=== PATIENT | female | born 1990 | race Caucasian/White ===

== ENCOUNTER 2018-09-25 21:35 | Inpatient (IN) | payer BC ==
[2018-09-26] MEDS ORDERED: Nalbuphine 10 MG/1 ML Vial IM STA (02:53)
[2018-09-26] MEDS ORDERED: Nalbuphine 10 MG/1 ML Vial ONE (03:21)
[2018-09-26] MEDS: Lactated Ringers 1,000 ML IV SCH ×3 (03:28→10:21)
[2018-09-26] MEDS ORDERED: Lactated Ringers 1,000 ML IV ONE (04:21)
[2018-09-26] MEDS ORDERED: Ondansetron 4 MG/2 ML SDV IV PRN (04:21)
[2018-09-26] MEDS ORDERED: Bupivacaine 0.5% 30 ML SDV ONE ×2 (08:00→11:17)
[2018-09-26] MEDS ORDERED: Sodium Chloride 0.9% 10 ML Syringe FLUSH PRN (08:09)
[2018-09-26] MEDS ORDERED: Carboprost Tromethamine 250 MCG/1 ML Amp IM PRN (08:09)
[2018-09-26] MEDS ORDERED: Tranexamic Acid 1,000 MG in Sodium Chloride 0.9% 100 ML IV PRN (08:09)
[2018-09-26] MEDS ORDERED: Misoprostol 400 MCG (4 X 100 MCG TAB) RECTAL PRN (08:09)
[2018-09-26] MEDS ORDERED: Lactated Ringers 500 ML IV ONE (08:09)
[2018-09-26] MEDS ORDERED: Methylergonovine 0.2 MG/1 ML Amp IM PRN (08:09)
[2018-09-26] MEDS ORDERED: Metoclopramide 10 MG/2 ML SDV IVPUSH PRN (08:09)
[2018-09-26] MEDS ORDERED: Acetaminophen 325 MG Tab PO PRN (08:09)
[2018-09-26] MEDS ORDERED: fentaNYL 100 MCG/2 ML SDV IVPUSH PRN (08:09)
[2018-09-26] MEDS ORDERED: Lidocaine 1% 30 ML SDV INJECT PRN (08:09)
[2018-09-26] MEDS ORDERED: Oxytocin/Normal Saline 30 UNIT/500 ML BAG IV SCH (08:15)
[2018-09-26] MEDS ORDERED: fentaNYL 100 MCG/2 ML SDV ONE (09:46)
[2018-09-26] MEDS ORDERED: EPINEPHrine 1 MG/ML SDV ONE (09:46)
[2018-09-26] MEDS ORDERED: ePHEDrine 50 MG/ML SDV ONE (10:19)
[2018-09-26] MEDS ORDERED: Citric Acid/Sodium Citrate Solution 30 ML Cup PO ONE (10:53)
[2018-09-26] MEDS ORDERED: ceFAZolin 2 GM in Premix Bag 1 BAG IV ONE (11:00)
[2018-09-26] MEDS ORDERED: Oxytocin/Normal Saline 60 UNIT/1,000 ML BAG ONE (11:05)
[2018-09-26] MEDS ORDERED: Propofol 200 MG/20 ML SDV ONE (11:06)
--- NOTE | 2018-09-26 11:22 | PCM.PRNOTE ---
- Free Text/Narrative Note: Requested to provide analgesia to full term patient in severe pain, mom is not tolerating contractions at all. Upon entering the room, patient is lying in bed complaining of severe abdominal/pelvic pain and discomfort with eyes closed. Unable to talk to me. Procedure was discussed with patient including adverse outcomes and expectations. Pt consented to analgesia, SAB/IT. Pt placed into a proper sitting position. Landmarks for SAB/IT were identified and marked. Hands were washed and appropriate PPE was applied. Back was prepped with betadine x3. A sterile, transparent, fenestrated drape was applied. Excess betadine was removed. Using 3 mL of a 1% lidocaine solution, a skin wheel was placed at the L2/L3 interspace. A 24 ga (4 inch) Pencan spinal needle was inserted until positive for CSF. Negative for heme or paresthesias. Injected fentanyl 30 mcg, sufentanil 25 mcg, and 9 mg of a 0.75% bupivacaine solution with an epi wash. Pt was placed left lateral position for approximately 10 min. Baby started having decelerations with HR as low as 60s for a few seconds. HR was in 90s for a few minutes. Dr Yepez was notified. Pt was moved to right lateral postion. BP normal but decels still present. Switched to left lateral with BP cuff on right arm, above heart and BP was 73/ 45. Retook BP and was still 80/40s. Pt is having no N/V or other s/s of hypotension. Baby HR likes left side will FHR in 150s but mom BP is still low. Pt was given 10 mg of ephedrine IV and BP back to 110/50 while still on left side. Mother did have a decel right before the intrathecal but nurse did say she had a few throughout the night. Dr Yepez wants to do an urgent c- section. Will continue to monitor. Procedure Date & Time: 09/26/18 [id number]
[2018-09-26] MEDS ORDERED: Bupivacaine 0.5% 30 ML SDV INJECT ONE (12:49)
[2018-09-26] MEDS ORDERED: diphenhydrAMINE 50 MG/ML SDV IVPUSH PRN (14:16)
[2018-09-26] MEDS ORDERED: Naloxone 2 MG/2 ML Syringe IVPUSH PRN (14:16)
[2018-09-26] MEDS ORDERED: ePHEDrine 50 MG/ML SDV IVPUSH PRN (14:16)
[2018-09-26] MEDS ORDERED: Acetaminophen/oxyCODONE 325-5 MG Tab PO PRN (14:16)
--- NOTE | 2018-09-26 15:49 | OR ---
DATE: 09/26/2018 LOCATION: [facility]. PREOPERATIVE DISCUSSION: Preoperatively, we did thoroughly explain to the patient the reasons and the goals for strongly recommending a primary section. The patient does have non-reassuring heart tones with recurrent variable decelerations at times and some of these decelerations were down into the 70s with slow return to baseline and now a lack of variability. Other times and most of the time, the heart tones have been category I, however. We did strongly recommend delivery by section for these reasons. Alternatives such as waiting longer with a further trial of labor, which I do not recommend, was discussed with her and offered to her. The patient and her and I have all agreed to proceed with primary section, however. We did thoroughly discuss the risk and slight chance for complications or adverse outcomes or adverse side effects from a section and we did discuss these possibilities with her. All of her questions have been answered. They both do consent for the as mentioned above. PREOPERATIVE DIAGNOSES: 1. at 40 weeks' gestation with non-reassuring heart tones with recurrent variable decelerations and lack of variability. Previously, her heart tones have been category I. 2. The patient is rhesus-factor negative. 3. Gestational hypertension. OPERATION PERFORMED: Primary section, low transverse. POSTOPERATIVE DIAGNOSES: 1. at 40 weeks' gestation with non-reassuring heart tones with recurrent variable decelerations and lack of variability. Previously, her heart tones have been category I. 2. The patient is rhesus-factor negative. 3. Gestational hypertension. 4. Evidence of pelvic adhesions, suggesting a previous pelvic inflammatory process. KEYPUNCHER SURGEON: Beena Nieves MD ESTIMATED BLOOD LOSS: 700 mL. COMPLICATIONS: None. DESCRIPTION OF PROCEDURE: After the induction of satisfactory regional anesthesia and with the patient's abdomen routinely prepped and draped in the usual fashion, a Pfannenstiel incision was now made in the skin. This was carried down to the deeper layers with a clean knife and the peritoneum was now entered in the usual fashion. I did notice that interestingly, the lower uterine segment was not very well thinned out as we usually see, also there were multiple areas of fine filmy adhesions across pretty much all of the anterior uterus, suggesting a possible previous inflammatory process. Also, her ovaries had fine filmy adhesions suggesting previous inflammation of some sort. Now, the lower uterine incision was made and this was extended bilaterally with the bandage scissors. There were quite a few large venous sinusoids in this thick lower uterine segment. The baby was now delivered from the vertex presentation and this was a viable male who had scores of 8 and 9 and the weight was later reported as 7 pounds 11 ounces. A sample of cord blood was obtained. The placenta was manually delivered from the uterine cavity and the uterine cavity was now carefully wiped clean with a moist laparotomy sponge. The first layer of the uterus was closed with 0 Vicryl continuous interlocking sutures. A second Lembert imbricating layer was now placed on top of this. There was some extra bleeding in the left angle area of the uterine incision and 2 more interrupted sutures of 0 Vicryl were placed in this area. Several small bleeders on the anterior surface of the uterus were still oozing and these were very carefully electrocoagulated. Please see my description above regarding the fine filmy adhesions on her ovaries bilaterally as well as across all of the anterior serosal surface of the uterus, which seemed to have numerous neovascularization and potential for bleeding, and suggest a previous inflammatory process. When the uterine incision was noted to be hemostatic, the pelvis was very carefully but thoroughly irrigated with warm normal saline. The pelvis was now re-inspected again and a couple more areas were electrocoagulated and then I did place Surgicel in 3 areas on the serosal surface of the uterus to achieve further hemostasis. The Pearson catheter was draining clear urine at all times. The pelvic anterior peritoneum was now re-approximated with 3-0 plain gut sutures. The rectus fascia was now closed with 0 Vicryl continuous suturing using a separate strand for the right and left sides of the incision respectively. This gave an appropriate and adequate closure. Now, the subcutaneous tissues were irrigated again and then closed with 3-0 plain gut interrupted. The subcutaneous tissues were injected with 10 mL of 0.5% Marcaine for extra analgesic support. Marcus were now applied to the skin. The needle, sponge, and instrument counts were reported as correct. Estimated blood loss was approximately 700 mL. As mentioned above, Pearson catheter was draining clear urine at all times. The patient tolerated the procedure well and went to the recovery room in good condition. [facility] /[id number]
[2018-09-26] MEDS: Docusate Sodium 100 MG Cap PO PRN (17:42)
[2018-09-26] MEDS: Ketorolac 30 MG/ML SDV IVPUSH SCH ×2 (17:42→23:37)
[2018-09-26] MEDS: Simethicone 80 MG Tab.Chew PO SCH ×2 (17:42→22:00)
[2018-09-27] MEDS: Ketorolac 30 MG/ML SDV IVPUSH SCH (06:11)
[2018-09-27] MEDS: Docusate Sodium 100 MG Cap PO PRN ×2 (08:03→21:33)
[2018-09-27] MEDS: Simethicone 80 MG Tab.Chew PO SCH ×4 (08:03→21:33)
[2018-09-27] MEDS: Prenatal Multivitamin with Calcium/Folic Acid/Iron Tab PO SCH (08:03)
--- NOTE | 2018-09-27 08:51 | HP ---
HISTORY OF PRESENT ILLNESS: This patient is a 28-year-old, 1, para 0, patient who is followed by Dr. Peterson. I have also seen her previously before her by good dates and by early ultrasound. She does have an FERNANDO of 09/26, and is at 40 weeks' gestation today. She was in [place] yesterday, and at approximately, 6:00 p.m. yesterday, 09/25/2018, she did have spontaneous rupture of membranes. She did continue to leak from the bag of martínez, however, did not have any onset of labor contractions. She did come to this facility at approximately 10 last night. Her course has otherwise been quite uncomplicated. Because of some edema of her lower extremities, which was a bit more prominent on the right lower extremity, a Doppler ultrasound was done on her previously, which did not reveal any evidence of DVT. She also has had some slightly elevated blood pressures at times and Dr. Peterson has been doing serial PIH lab testing on her and all of that testing recently has not revealed any evidence for preeclampsia. We also have repeated her PIH labs late last night and those continued to be within normal limits. The patient is Rh- negative, unsensitized. She has been experiencing good movement recently. She denies any other obstetric complications prenatally that she is aware of. Please see the EHR for her complete battery of labs. As mentioned above, she is definitely GBS negative. She is immune to rubella. PAST MEDICAL HISTORY: She denies any knowledge of heart, lung, liver or kidney disease. ALLERGIES: Codeine and milk. PAST SURGICAL HISTORY: Previous surgery consists of wisdom tooth extraction. MEDICATIONS: At present, vitamins. FAMILY HISTORY: Noncontributory. 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 She is here with her while in labor. She is a nonsmoker. Denies heavy usage of alcohol and no alcohol during the of course. PHYSICAL EXAMINATION: Vital Signs: Admission blood pressures were 137/86, pulse 73, respirations 18, temperature 98.2. HEENT: The sclerae are nonicteric. Lungs: Clear to A. Heart: Regular rhythm without murmur. Abdomen: Gravid and heart tones are category I. There is negative CVA tenderness bilaterally. Pelvic: Vertex is the presenting part by Steven maneuver. My cervical examination reveals the vertex to be at 0 station, 3+ cm of dilation, and 90% effaced. Earlier examinations by the nurses such as on admission revealed her cervix to be off to the left, 1 cm dilated, and 50% effaced. Musculoskeletal: Her extremities do reveal 1+ ankle and pretibial edema. Her DTRs are normoflexic. There is no ankle clonus. IMPRESSION: The patient has gone into active labor during the night last night. She did have 2 episodes of variable decelerations going down to the 70s with somewhat slow return. She does have category I heart tones at present with no further variable decelerations showing up. She also does have acceleration of the heart tones with my scalp stimulation on my recent exam. There is moderate variability of course. No meconium is noted. PLAN: I do anticipate spontaneous vaginal delivery. I did explain to her, however, that if there was a significant recurrence of variable decelerations that section would be resorted to. The patient has had 1 injection of Nubain during the night, 20 mg IM, with fair relief. She will be getting intrathecal analgesia in the relatively near future. Membranes did rupture approximately 12 hours ago, and we will monitor this length of time closely. The patient is Rh-negative, and at term. [facility] /[id number]
[2018-09-27] MEDS ORDERED: Oxytocin/Normal Saline 30 UNIT/500 ML BAG IV ONE (11:06)
[2018-09-27] MEDS: Acetaminophen/oxyCODONE 325-5 MG Tab PO PRN ×3 (12:42→21:34)
[2018-09-27] MEDS: Ferrous Sulfate 325 MG Tab PO SCH ×2 (12:47→17:58)
--- NOTE | 2018-09-27 13:59 | PN ---
DATE: 09/27/2018 SUBJECTIVE: Tanisha did get a slight to moderate amount of rest last night. She hopes to sleep better tonight. She has ambulated in a satisfactory fashion this morning. She is beginning her breakfast at the present time. OBJECTIVE: Vital Signs: Within normal limits. Abdomen: Soft and slightly tender in the incisional area. The dressing is dry. Extremities: 1+ ankle and pretibial edema as before. Her DTRs are normoreflexic. I note that her postoperative hemoglobin is 9.3. IMPRESSION: Stable postoperative course. PLAN: She will begin iron sulfate 325 mg p.o. b.i.d. with food or meals. We have emphasized the importance of adequate hydration and healthy well-balanced nutrition. As mentioned above, she will do gradual progressive ambulation. Please see our admission history and physical and operative report. I will sign her out to her physician, Dr. Peterson, today, and Dr. Peterson will continue to follow her in my absence of course. [facility] /[id number]
[2018-09-27] MEDS: Ibuprofen 800 MG Tab PO PRN ×2 (14:37→21:35)
[2018-09-27] MEDS ORDERED: Bupivacaine 0.75%/D5W 2 ML Amp INJECT ONE ×2 (16:38→16:43)
[2018-09-27] MEDS ORDERED: Dexamethasone 4 MG/ML SDV IV ONE (16:38)
[2018-09-27] MEDS ORDERED: Ketorolac 30 MG/ML SDV IVPUSH ONE (16:38)
[2018-09-27] MEDS ORDERED: Lidocaine 2% 20 ML MDV INJECT ONE ×2 (16:38→16:43)
[2018-09-27] MEDS ORDERED: Lactated Ringers 1,000 ML IV ONE (16:38)
[2018-09-27] MEDS ORDERED: Ondansetron 4 MG/2 ML SDV IV ONE (16:38)
[2018-09-27] MEDS ORDERED: ePHEDrine 50 MG/ML SDV IV ONE (16:43)
[2018-09-27] MEDS ORDERED: fentaNYL 100 MCG/2 ML SDV ITHECAL ONE (16:43)
[2018-09-27] MEDS ORDERED: EPINEPHrine 1 MG/ML SDV ONE (16:43)
[2018-09-28] MEDS: Acetaminophen/oxyCODONE 325-5 MG Tab PO PRN ×5 (03:05→21:22)
[2018-09-28] MEDS: Simethicone 80 MG Tab.Chew PO SCH ×5 (07:45→21:22)
[2018-09-28] MEDS: Ferrous Sulfate 325 MG Tab PO SCH ×2 (07:45→17:08)
[2018-09-28] MEDS: Prenatal Multivitamin with Calcium/Folic Acid/Iron Tab PO SCH ×2 (07:45→09:30)
[2018-09-28] MEDS: Ibuprofen 800 MG Tab PO PRN ×2 (07:46→17:08)
[2018-09-28] MEDS: Docusate Sodium 100 MG Cap PO PRN ×2 (07:46→21:22)
[2018-09-29] MEDS: Ibuprofen 800 MG Tab PO PRN ×2 (03:31→11:20)
[2018-09-29] MEDS: Acetaminophen/oxyCODONE 325-5 MG Tab PO PRN ×3 (03:32→13:43)
[2018-09-29] MEDS: Ferrous Sulfate 325 MG Tab PO SCH (09:01)
[2018-09-29] MEDS: Prenatal Multivitamin with Calcium/Folic Acid/Iron Tab PO SCH (09:01)
[2018-09-29] MEDS: Docusate Sodium 100 MG Cap PO PRN (09:01)
[2018-09-29] MEDS: Simethicone 80 MG Tab.Chew PO SCH ×2 (09:02→13:43)
--- NOTE | 2018-09-29 12:40 | PCM.DCSUM1 ---
Discharge Summary - Hospital Course Diagnosis: Stroke: No - Discharge Data Discharge Disposition: Home, Self-Care 01 Condition: Good - Patient Summary/Data Operative Procedure(s) Performed: primary low transverse section by Dr. Henriquez Complications: none Consults: Consultations 09/26/18 14:17 Consult to Electric Power Line Repairer [CONS] Routine Labs Pending at D/C: CBC Hospital Course: Rhogam 09-27-18 mom is AB negative cord blood B positive, FARIBA negative. Percocet Rx 09-29-18 #40, o refills. - Discharge Plan Home Medications: Home Meds PNV95/Ferrous Fumarate/FA [ Vitamin Tablet] 1 each PO DAILY 09/26/18 [ History] - Discharge Summary/Plan Comment DC Time >30 min.: No - Patient Data Vitals - Most Recent: Last Vital Signs Temp 98.9 F 09/29/18 08:00 Pulse 73 09/29/18 08:00 Resp 18 09/29/18 08:00 BP 121/78 09/29/18 08:00 Pulse Ox 100 09/29/18 08:00 Weight - Most Recent: 244 lb Lab Results - Last 24 hrs: Laboratory Results - last 24 hr 09/26/18 Range/Units 16:05 Maternal Bleed See scanned report Med Orders - Current: Current Medications Acetaminophen (Tylenol) 650 mg PO Q4H PRN PRN Reason: Pain (Mild 1-3) and fever Carboprost Tromethamine (Hemabate Ds) 250 mcg IM ASDIRECTED PRN PRN Reason: HEMORRHAGE Diphenhydramine HCl (Benadryl) 25 mg IVPUSH Q6H PRN PRN Reason: Itching or Nausea Docusate Sodium (Colace) 100 mg PO Q12H PRN PRN Reason: Constipation Last Admin: 09/29/18 09:01 Dose: 100 mg Ephedrine Sulfate (Ephedrine Sulfate) 5 mg IVPUSH SEECOMMENT PRN PRN Reason: Other Fentanyl (Sublimaze) 50 mcg IVPUSH Q1H PRN PRN Reason: Pain (moderate 4-6) Ferrous Sulfate (Ferrous Sulfate) 325 mg PO BIDMEALS [facility] Last Admin: 09/29/18 09:01 Dose: 325 mg Lactated Ringer's (Ringers, Lactated) 1,000 mls @ 125 mls/hr IV ASDIRECTED CLAY Last Admin: 09/26/18 10:21 Dose: 125 mls/hr Oxytocin/Sodium Chloride (Pitocin In Ns 30 Unit/500 Ml) 30 unit in 500 mls @ 2 mls/hr IV TITRATE CLAY; Protocol Last Titration: 09/26/18 15:14 Dose: 0 munits/min, 0 mls/hr Tranexamic Acid 1,000 mg/ (Sodium Chloride) 110 mls @ 660 mls/hr IV ONETIME PRN PRN Reason: Bleeding Ibuprofen (Motrin) 800 mg PO Q8H PRN PRN Reason: mild pain or fever Last Admin: 09/29/18 11:20 Dose: 800 mg Lidocaine HCl (Xylocaine-Mpf 1%) 30 ml INJECT ASDIRECTED PRN PRN Reason: Perineal Repair Methylergonovine Maleate (Methergine) 0.2 mg IM ASDIRECTED PRN PRN Reason: Hemorrhage Metoclopramide HCl (Reglan) 5 mg IVPUSH Q6H PRN PRN Reason: Nausea/Vomiting Misoprostol (Cytotec) 800 mcg RECTAL ASDIRECTED PRN PRN Reason: Hemorrhage Naloxone HCl (Narcan) 0.1 mg IVPUSH SEECOMMENT PRN PRN Reason: Respiratory Depression Ondansetron HCl (Zofran) 4 mg IV Q4H PRN PRN Reason: Nausea/Vomiting Last Admin: 09/26/18 09:31 Dose: 4 mg Oxycodone/Acetaminophen (Percocet 325-5 Mg) 1 tab PO Q4H PRN PRN Reason: Pain (moderate 4-6) Last Admin: 09/27/18 08:03 Dose: 1 tab Oxycodone/Acetaminophen (Percocet 325-5 Mg) 2 tab PO Q4H PRN PRN Reason: Pain (moderate 4-6) Last Admin: 09/29/18 09:02 Dose: 2 tab Prenat Multivit/Gang Boss/Iron/Folic Ac ( Plus Iron) 1 each PO DAILY [facility] Last Admin: 09/29/18 09:01 Dose: 1 each Simethicone (Simethicone) 160 mg PO QID [facility] Last Admin: 09/29/18 09:02 Dose: 160 mg Sodium Chloride (Saline Flush) 10 ml FLUSH ASDIRECTED PRN PRN Reason: Keep Vein Open Discontinued Medications Bupivacaine HCl (Marcaine 0.5%) Confirm Administered Dose 30 ml .ROUTE .STK-MED ONE Stop: 09/26/18 11:18 Bupivacaine HCl (Marcaine 0.5%) 10 ml INJECT .STK-MED ONE Stop: 09/26/18 12:50 Last Admin: 09/26/18 12:49 Dose: 10 ml Bupivacaine HCl (Marcaine 0.5%) 30 ml .ROUTE .STK-MED ONE Stop: 09/26/18 08:01 Bupivacaine HCl/Dextrose (Marcaine 0.75% Spinal) 1.8 ml INJECT .STK-MED ONE Stop: 09/27/18 16:39 Bupivacaine HCl/Dextrose (Marcaine 0.75% Spinal) 1.2 ml INJECT .STK-MED ONE Stop: 09/27/18 16:44 Citric Acid/Sodium Citrate (Bicitra Solution) 30 ml PO ONETIME ONE Stop: 09/26/18 10:54 Last Admin: 09/26/18 11:16 Dose: 30 ml Dexamethasone (Dexamethasone) 8 mg IV .STK-MED ONE Stop: 09/27/18 16:39 Ephedrine Sulfate (Ephedrine Sulfate) Confirm Administered Dose 50 mg .ROUTE .STK-MED ONE Stop: 09/26/18 10:20 Last Admin: 09/26/18 13:32 Dose: Not Given Ephedrine Sulfate (Ephedrine Sulfate) 10 mg IV .STK-MED ONE Stop: 09/27/18 16:44 Epinephrine HCl (Adrenalin) Confirm Administered Dose 1 mg .ROUTE .STK-MED ONE Stop: 09/26/18 09:47 Last Admin: 09/26/18 10:22 Dose: Not Given Epinephrine HCl (Adrenalin) 0.1 mg .XX .STK-MED ONE Stop: 09/27/18 16:44 Fentanyl (Sublimaze) Confirm Administered Dose 100 mcg .ROUTE .STK-MED ONE Stop: 09/26/18 09:47 Last Admin: 09/26/18 10:22 Dose: Not Given Fentanyl (Sublimaze) 30 mcg ITHECAL .STK-MED ONE Stop: 09/27/18 16:44 Lactated Ringer's (Ringers, Lactated) 1,000 mls @ 999 mls/min IV .BOLUS ONE Stop: 09/26/18 04:22 Last Admin: 09/26/18 09:31 Dose: 999 mls/min Lactated Ringer's (Ringers, Lactated) 500 mls @ 999 mls/hr IV .BOLUS ONE Stop: 09/26/18 08:39 Last Admin: 09/26/18 08:28 Dose: Not Given Cefazolin Sodium/Dextrose 2 gm (/ Premix) 50 mls @ 100 mls/hr IV ONETIME ONE Stop: 09/26/18 11:29 Last Admin: 09/26/18 11:28 Dose: 100 mls/hr Oxytocin/Sodium Chloride (Pitocin In Ns 30 Unit/500 Ml) Confirm Administered Dose 60 unit in 1,000 mls @ as directed .ROUTE .STK-MED ONE Stop: 09/26/18 11:06 Oxytocin/Sodium Chloride (Pitocin In Ns 30 Unit/500 Ml) 30 unit in 500 mls @ as directed IV .STK-MED ONE Stop: 09/27/18 11:07 Lactated Ringer's (Ringers, Lactated) 1,000 mls @ as directed IV .STK-MED ONE Stop: 09/27/18 16:39 Ketorolac Tromethamine (Toradol) 15 mg IVPUSH Q6H CLAY Stop: 09/27/18 06:01 Last Admin: 09/27/18 06:11 Dose: 15 mg Ketorolac Tromethamine (Toradol) 30 mg IVPUSH .STK-MED ONE Stop: 09/27/18 16:39 Lidocaine HCl (Xylocaine 2%) 3 ml INJECT .STK-MED ONE Stop: 09/27/18 16:39 Lidocaine HCl (Xylocaine 2%) 3 ml INJECT .STK-MED ONE Stop: 09/27/18 16:44 Nalbuphine HCl (Nubain) 20 mg IM ONETIME STA Stop: 09/26/18 02:54 Last Admin: 09/26/18 03:28 Dose: 20 mg Nalbuphine HCl (Nubain) Confirm Administered Dose 20 mg .ROUTE .STK-MED ONE Stop: 09/26/18 03:22 Last Admin: 09/26/18 08:03 Dose: Not Given Ondansetron HCl (Zofran) 4 mg IV .STK-MED ONE Stop: 09/27/18 16:39 Oxytocin/Sodium Chloride (Pitocin In Ns 30 Unit/500 Ml) 30 unit .ROUTE .STK- MED ONE Stop: 09/26/18 08:01 Propofol (Diprivan 20 Ml) Confirm Administered Dose 600 mg .ROUTE .STK-MED ONE Stop: 09/26/18 11:07 Sufentanil Citrate (Sufenta) Confirm Administered Dose 50 mcg .ROUTE .STK-MED ONE Stop: 09/26/18 09:47 Last Admin: 09/26/18 10:22 Dose: Not Given Sufentanil Citrate (Sufenta) 25 mcg ITHECAL .STK-MED ONE Stop: 09/27/18 16:44
== END 2018-09-29 14:00 | disposition home or self-care (01) | DRG 540 ==
LOC: DL.OBCHECK 21:35 → UNDOADMOB 22:24 → DL.OB 22:24 → OBSVTOIN 09-26 08:09 → INTOOBSV 09-26 08:09 → UNDOADMOB 09-26 11:55 → OBSVTOIN 09-26 11:55 → DL.OB 09-26 11:55 → INTOOBSV 09-26 11:55 → DL.MS 09-26 11:55
PROVIDERS: ADMIT Family Medicine; ATTEND Family Medicine
PROC: 10D00Z1 Extraction of Products of Conception, Low, Open Approach (ICD-10-PCS; principal; 2018-09-26)
PROC: 3E0R3BZ Introduction of Anesthetic Agent into Spinal Canal, Percutaneous Approach (ICD-10-PCS; 2018-09-26)
DX: O76 Abnormality in fetal heart rate and rhythm complicating labor and delivery (principal); O13.4 Gestational [pregnancy-induced] hypertension without significant proteinuria, complicating childbirth; O75.3 Other infection during labor; Z3A.40 40 weeks gestation of pregnancy; Z37.0 Single live birth; Z88.5 Allergy status to narcotic agent; Z91.011 Allergy to milk products
CPT/HCPCS: 36415; 51701; 51702; 82565; 82570; 83615; 83986; 84156; 84450; 84460; 84520; 84550; 85027; 85461; 86850; 86900; 86901; A9270-GY; J0171; J0690; J1100; J1885; J2300; J2405; J2590; J2790; J3010; J3490; J7120